=== PATIENT | female | born 1995 | race African-American/Black ===

== ENCOUNTER 2016-09-18 08:13 | Day surgery (SDC) | payer OTHER ==
[~2016-09-18 08:13] MED LIST: DEXAMETHASONE SOD PHOS INJ 10 MG/1 ML VIAL ONE; DEXMEDETOMIDINE INJ 80 MCG/20 ML VIAL IV ONE; FENTANYL CITRATE INJ/PF 250 MCG/5 ML AMPULE ONE; MIDAZOLAM 2 MG/2 ML INJ ONE; ONDANSETRON HCL INJ/PF 4 MG/2 ML SDV ONE; PROPOFOL INJ 200 MG/20 ML VIAL IV ONE; SUCCINYLCHOLINE CHLORIDE INJ 200 MG/10 ML VIAL ONE
[2016-09-18] MEDS ORDERED: LIDOCAINE 0.5% INJ-PF (5 MG/ML) 50 ML SDV ONE (08:54)
--- NOTE | 2016-09-18 11:01 | [facility] OPERATIVE REPORT E ---
[facility] Operative Report NAME: PAMELA GOMEZ AGE: 21Y DATE OF SURGERY: 09/18/2016 ROOM: PREOPERATIVE DIAGNOSES: 1. Recurrent tonsillitis. 2. Obstructive tonsil hypertrophy. POSTOPERATIVE DIAGNOSES: 1. Recurrent tonsillitis. 2. Obstructive tonsil hypertrophy. PROCEDURE: Bilateral tonsillectomy. SURGEON: NICOLAS CHA M.D. ANESTHESIA: General endotracheal. ESTIMATED BLOOD LOSS: 10 mL. COMPLICATIONS: None. INTRAOPERATIVE FINDINGS: Tonsils 3+. INDICATIONS FOR PROCEDURE: A 21-year-old woman with recurring tonsillitis over the last 18 months, meeting AAO criteria for tonsillectomy as well as obstructive tonsil hypertrophy with mainly sleep disordered breathing symptoms. PROCEDURE IN DETAIL: The patient was met in the preoperative holding area. All questions were answered and consent was verified. She was then brought back to the operating room and placed supine on the operating room table and general endotracheal anesthesia was induced without difficulty. The table was turned and she was placed in slight extension. Her eyes were protected with towel head drape and a preoperative time out was performed. A Arley-Pepito mouth gag was inserted and opened to visualize the oropharynx and suspended from the [place] stand. The left tonsil was grasped and dissected from the peritonsillar plane with electrocautery. The right tonsil was then similarly dissected. Hemostasis was achieved as necessary with suction electrocautery and verified after irrigation and briefly de-suspending her from the mouth gag. This was then removed and she was turned over to the Anesthesia Team for reversal and extubation. She tolerated the procedure well. DICTATING PHYSICIAN: NICOLAS CHA M.D. [id number] Y#: [id number] ID: [id number] JOB#: [id number] ACCT: [id number] cc:NICOLAS CHA M.D. >
== END 2016-09-18 10:51 | disposition home or self-care (01) ==
LOC: SC 08:13
PROVIDERS: ATTEND Otolaryngology
PROC: 0CTPXZZ Resection of Tonsils, External Approach (ICD-10-PCS; principal; 2016-09-18 09:00)
DX: J35.1 Hypertrophy of tonsils (principal); F17.210 Nicotine dependence, cigarettes, uncomplicated
CPT/HCPCS: 88304 ×2; 42826; J2250; J3010; J3490 ×2; J0330; J2405; J2704; J1100; 170